=== PATIENT | male | born 1995 | race Caucasian/White ===

== ENCOUNTER 2016-09-22 13:23 | Emergency (ER) | payer MEDICARE | END 2016-09-22 15:30 | disposition home or self-care (01) | LOC: ER 13:23 | DX: R07.9 Chest pain, unspecified (principal); F90.9 Attention-deficit hyperactivity disorder, unspecified type; Z79.899 Other long term (current) drug therapy; Z87.891 Personal history of nicotine dependence | CPT/HCPCS: 36415; 96374; J1885 ==